=== PATIENT | female | born 1980 | race Caucasian/White ===

== ENCOUNTER 2018-10-13 14:07 | Outpatient (CLI) | payer MEDICAID | END 2018-10-13 17:40 | disposition home or self-care (01) | LOC: OBT 14:07 → L-D 14:07 → OBT 17:40 | DX: O24.419 Gestational diabetes mellitus in pregnancy, unspecified control (principal); O36.8330 Maternal care for abnormalities of the fetal heart rate or rhythm, third trimester, not applicable or unspecified; O09.513 Supervision of elderly primigravida, third trimester; Z3A.36 36 weeks gestation of pregnancy | CPT/HCPCS: 76818 ==

== ENCOUNTER 2018-10-16 15:13 | Outpatient (CLI) | payer MEDICAID | END 2018-10-16 18:59 | disposition home or self-care (01) | LOC: OBT 15:13 → L-D 15:14 → OBT 18:59 | DX: O24.415 Gestational diabetes mellitus in pregnancy, controlled by oral hypoglycemic drugs (principal); O09.523 Supervision of elderly multigravida, third trimester; Z3A.36 36 weeks gestation of pregnancy | CPT/HCPCS: 76818; 82962 ==

== ENCOUNTER 2018-10-24 20:26 | Outpatient (CLI) | payer MEDICAID | END 2018-10-24 22:40 | disposition home or self-care (01) | LOC: OBT 20:26 → L-D 20:27 → OBT 22:40 | DX: O24.419 Gestational diabetes mellitus in pregnancy, unspecified control (principal); O09.523 Supervision of elderly multigravida, third trimester; O34.219 Maternal care for unspecified type scar from previous cesarean delivery; Z3A.38 38 weeks gestation of pregnancy | CPT/HCPCS: 76818 ==

== ENCOUNTER 2018-10-29 10:59 | Inpatient (IN) | payer MEDICAID ==
[2018-10-29] MEDS ORDERED: OXYTOCIN 30 UNITS/LR 500 ML IV ×2 (12:00→18:00)
[2018-10-29] MEDS ORDERED: CEFAZOLIN 3 GM in DEXTROSE 5% 100 ML IV (12:00)
[2018-10-29] MEDS ORDERED: CARBOPROST 250 MCG INJ IM ×2 (12:00→18:00)
[2018-10-29] MEDS ORDERED: METHYLERGONOVINE 0.2 MG INJ IM ×2 (12:00→18:00)
[2018-10-29] MEDS ORDERED: MISOPROSTOL 200 MCG TAB PR ×2 (12:00→18:00)
[2018-10-29] MEDS: LACTATED RINGER'S 1,000 ML IV ×2 (12:34→12:54)
[2018-10-29 12:37] LABS: ADD MAN DIFF? NO
[2018-10-29 12:39] LABS: WHITE BLOOD COUNT 9.1 10^3/ul (4.8-10.8)
[2018-10-29 12:39] LABS: BASOPHILS % 0.2 % (0.0-2.0); EOSINOPHILS % 0.4 % (0.0-7.0); HEMATOCRIT 35.5 % (37.0-47.0); HEMOGLOBIN 11.4 g/dl (12.0-16.0); LYMPHOCYTES # 2.1 10^3/ul (0.8-2.9); LYMPHOCYTES % 23.4 % (15.0-51.0); MEAN CORPUSCULAR HEMOGLOBIN 27.3 pg (29.0-33.0); MEAN CORPUSCULAR HGB CONC 32.1 g/dl (32.0-37.0); MEAN CORPUSCULAR VOLUME 85.1 fl (82.0-101.0); MEAN PLATELET VOLUME 11.8 fl (7.4-10.4); MONOCYTE # 0.5 10^3/ul (0.3-0.9); MONOCYTES % 5.5 % (0.0-11.0); NEUTROPHIL # 6.4 10^3/ul (1.6-7.5); NEUTROPHILS % 70.1 % (39.0-77.0); PLATELET COUNT 228 10^3/UL (140-415); RED BLOOD COUNT 4.17 10^6/ul (4.20-5.40); RED CELL DISTRIBUTION WIDTH 15.6 % (11.5-14.5)
[2018-10-29 13:02] LABS: PROTIME 12.3 Sec (11.9-14.9)
[2018-10-29 13:03] LABS: PARTIAL THROMBOPLASTIN TIME 26.3 Sec (23.0-35.0)
[2018-10-29 13:31] LABS: HEPATITIS B SURFACE ANTIGEN NEGATIVE (NEGATIVE)
[2018-10-29] MEDS ORDERED: OXYTOCIN 10 UNIT INJ ×2 (14:48→15:37)
[2018-10-29] MEDS ORDERED: PHENYLephrine (100 MCG/ML) 10ML SYG (14:48)
[2018-10-29] MEDS ORDERED: morphine SULFATE/PF (10 MG/10 ML) INJ (14:48)
[2018-10-29] MEDS ORDERED: ONDANSETRON 4 MG INJ ×2 (14:48→15:35)
[2018-10-29 15:10] LABS: RAPID PLASMA REAGIN NONREACTIVE (NR)
[2018-10-29] MEDS ORDERED: MIDAZOLAM 1 MG/ML 2 ML INJ (15:35)
[2018-10-29] MEDS ORDERED: METOCLOPRAMIDE 10 MG INJ (16:00)
[2018-10-29] MEDS ORDERED: DIPHENHYDRAMINE 50 MG INJ (16:39)
[2018-10-29] MEDS ORDERED: morphine 2 MG INJ IV (17:00)
[2018-10-29] MEDS ORDERED: NALOXONE (0.4 MG/ML) INJ IV (17:00)
[2018-10-29] MEDS ORDERED: DIPHENHYDRAMINE 50 MG INJ IV (17:00)
[2018-10-29] MEDS: OXYTOCIN 30 UNITS/LR 500 ML IV ×2 (17:26→21:32)
[2018-10-29] MEDS: DEXTROSE 5%-LR 1,000 ML IV (17:54)
[2018-10-29] MEDS ORDERED: METHYLERGONOVINE 0.2 MG TAB PO (18:00)
[2018-10-29] MEDS: SENNA/DOCUSATE NA (8.6MG/50MG) TAB PO (21:32)
[2018-10-29] MEDS: ONDANSETRON 4 MG INJ IV (23:02)
[2018-10-29] MEDS: LANOLIN HPA 1 PKT TOP (23:04)
[2018-10-29] MEDS ORDERED: ENOXAPARIN 40 MG/0.4 ML SYG SC (23:30)
[2018-10-30] MEDS: ENOXAPARIN 40 MG/0.4 ML SYG SC (01:45)
[2018-10-30] MEDS: DEXTROSE 5%-LR 1,000 ML IV (01:54)
[2018-10-30] MEDS: KETOROLAC 30 MG INJ IV ×2 (04:37→13:34)
[2018-10-30] MEDS: LACTATED RINGER'S 1,000 ML IV (06:07)
[2018-10-30 08:25] LABS: ADD MAN DIFF? NO
[2018-10-30 08:36] LABS: BASOPHILS % 0.2 % (0.0-2.0); EOSINOPHILS % 0.3 % (0.0-7.0); HEMATOCRIT 31.5 % (37.0-47.0); HEMOGLOBIN 9.7 g/dl (12.0-16.0); LYMPHOCYTES # 1.9 10^3/ul (0.8-2.9); LYMPHOCYTES % 17.7 % (15.0-51.0); MEAN CORPUSCULAR HEMOGLOBIN 26.8 pg (29.0-33.0); MEAN CORPUSCULAR HGB CONC 30.8 g/dl (32.0-37.0); MEAN PLATELET VOLUME 12.4 fl (7.4-10.4); MONOCYTE # 0.6 10^3/ul (0.3-0.9); MONOCYTES % 5.3 % (0.0-11.0); NEUTROPHIL # 8.1 10^3/ul (1.6-7.5); NEUTROPHILS % 76.2 % (39.0-77.0); PLATELET COUNT 197 10^3/UL (140-415); RED BLOOD COUNT 3.62 10^6/ul (4.20-5.40); RED CELL DISTRIBUTION WIDTH 15.8 % (11.5-14.5)
[2018-10-30 08:36] LABS: WHITE BLOOD COUNT 10.7 10^3/ul (4.8-10.8)
[2018-10-30] MEDS: SENNA/DOCUSATE NA (8.6MG/50MG) TAB PO ×2 (08:37→20:51)
[2018-10-30] MEDS ORDERED: DIPHTH/TET/ACEL PERTUSS (ADULT) 0.5 ML VIAL IM* ×2 (09:00→11:00)
[2018-10-30] MEDS: HYDROCODONE/APAP (5/325) TAB GTB ×2 (14:00→22:04)
[2018-10-30] MEDS: IBUPROFEN 800 MG TAB PO (22:04)
[2018-10-31] MEDS: ENOXAPARIN 40 MG/0.4 ML SYG SC (02:35)
[2018-10-31] MEDS: IBUPROFEN 800 MG TAB PO ×3 (06:19→21:24)
[2018-10-31] MEDS: HYDROCODONE/APAP (5/325) TAB GTB ×3 (06:19→21:24)
[2018-10-31] MEDS: SENNA/DOCUSATE NA (8.6MG/50MG) TAB PO ×2 (08:52→21:24)
[2018-10-31] MEDS: HYDROCODONE/APAP (5/325) TAB NGT (11:39)
[2018-10-31] MEDS: MAGNESIUM HYDROXIDE 30ML CUP PO (22:39)
[2018-11-01] MEDS: ENOXAPARIN 40 MG/0.4 ML SYG SC (01:35)
[2018-11-01] MEDS: HYDROCODONE/APAP (5/325) TAB GTB ×2 (05:26→14:14)
[2018-11-01] MEDS: IBUPROFEN 800 MG TAB PO ×2 (05:27→14:14)
[2018-11-01] MEDS: DIPHTH/TET/ACEL PERTUSS (ADULT) 0.5 ML VIAL IM* (09:00)
[2018-11-01] MEDS: MEASLES,MUMPS,RUBELLA VACCINE INJ SC* (09:00)
[2018-11-01] MEDS: SENNA/DOCUSATE NA (8.6MG/50MG) TAB PO (11:45)
== END 2018-11-01 17:08 | disposition home or self-care (01) | DRG 784 ==
LOC: L-D 10:59 → PP1 20:00
PROVIDERS: Obstetrics & Gynecology
PROC: 10D00Z1 Extraction of Products of Conception, Low, Open Approach (ICD-10-PCS; principal; 2018-10-29)
PROC: 0UB70ZZ Excision of Bilateral Fallopian Tubes, Open Approach (ICD-10-PCS; 2018-10-29)
DX: O24.425 Gestational diabetes mellitus in childbirth, controlled by oral hypoglycemic drugs (principal); D62 Acute posthemorrhagic anemia; O99.214 Obesity complicating childbirth; E66.9 Obesity, unspecified; O35.8XX0 Maternal care for other (suspected) fetal abnormality and damage, not applicable or unspecified; O34.219 Maternal care for unspecified type scar from previous cesarean delivery; O90.81 Anemia of the puerperium; Z3A.38 38 weeks gestation of pregnancy; Z37.0 Single live birth; Z30.2 Encounter for sterilization
CPT/HCPCS: 82962; 85025; 85610; 85730; 86592; 86850; 86900; 86901; 87340; 88302; 88307; 90686; 90715